=== PATIENT | male | born 1975 | race Caucasian/White ===

== ENCOUNTER 2022-06-04 10:31 | Emergency (ER) | payer OTHER ==
[2022-06-04 10:36] VITALS: BP 147/99; PULSE 80; RESP 20; TEMP 97.7; BMI 32.5
[2022-06-04] MEDS ORDERED: ACETAMINOPHEN 325 MG TABLET (FP) PO ONE (12:46)
[2022-06-04] MEDS ORDERED: ACETAMINOPHEN 325 MG TABLET (FP) ONE (12:52)
[2022-06-04 13:21] LABS: BASO % 0.4 % (0-2.0); EOS % 0.4 % (0-4.5); HEMATOCRIT 48.8 % (35.4-49); HEMOGLOBIN 16.3 GM/dL (11.7-16.9); LYMPH % 20.3 % (8-40); MCH 29.7 pg (25.7-33.7); MCHC 33.4 g/dl (32.0-35.9); MEAN CELL VOLUME 88.8 fl (80-96); MEAN PLT VOLUME 8.2 fl (7.5-11.1); MONO % 5.2 % (3.8-10.2); NEUT % 73.7 % (42.8-82.8); PLATELET COUNT 274 10^3/uL (134-434); RBC 5.49 M/mm3 (4.00-5.60); RDW 13.3 % (11.9-15.9); WHITE BLOOD COUNT 12.5 K/mm3 (4.0-10.0)
[2022-06-04 13:45] LABS: URINE APPEARANCE CLEAR; URINE BILIRUBIN NEGATIVE (NEGATIVE); URINE COLOR YELLOW; URINE GLUCOSE (UA) NEGATIVE (NEGATIVE); URINE KETONE 3+ (NEGATIVE); URINE LEUK ESTERASE NEGATIVE (NEGATIVE); URINE NITRITE NEGATIVE (NEGATIVE); URINE PROTEIN NEGATIVE (NEGATIVE); URINE UROBILINOGEN 0.2 mg/dL (0.2-1.0)
[2022-06-04 13:46] LABS: ALBUMIN 4.1 g/dl (3.4-5.0); CALCIUM 9.8 mg/dL (8.5-10.1)
[2022-06-04 13:47] LABS: BLOOD UREA NITROGEN 14.6 mg/dL (7-18)
[2022-06-04 13:51] LABS: BILIRUBIN,TOTAL 0.6 mg/dL (0.2-1); TOT PROT 8.3 g/dl (6.4-8.2)
[2022-06-04 14:02] LABS: CREATININE 1.1 mg/dL (0.55-1.3)
== END 2022-06-04 17:20 | disposition home or self-care (01) ==
LOC: JER 10:31
DX: M54.50 Low back pain, unspecified (principal)
CPT/HCPCS: 36415; 72131-TC; 74177-TC; 80053; 81003; 85025; 99285-25; Q9967